=== PATIENT | male | born 1970 | race Two or more races ===

== ENCOUNTER 2021-07-06 08:03 | Emergency (ER) | payer SELFPAY ==
[~2021-07-06] VITALS: Ht 175.3 cm; Wt 95.4 kg
[2021-07-06] MEDS: IV NORMAL SALINE 1000ML BAG 1,000 ML IV ONE (08:49)
[2021-07-06] MEDS: ONDANSETRON PF 4 MG/2 ML VIAL. IVP ONE (08:50)
[2021-07-06] MEDS: KETOROLAC 15 MG/ML VIAL. IVP ONE (08:50)
--- NOTE | 2021-07-06 08:53 | ED.ADGEN ---
Past Medical History Past Medical History: Kidney Stone Past Surgical History: Cancer Surgery Smoking Status: Never Smoker Alcohol Use: Occasionally General Adult EDM: Chief Complaint: ABDOMINAL PAIN HPI: HPI: Patient is a 51 year old male coming in for about 24 hours of right-sided abdominal and flank pain. Patient states the pain is sharp sharp and was initially intermittent has become more constant. States it is little better with walking around, not changed with p.o. intake. Patient denies any hematuria or changes in urination. Patient states that he has had some nausea but no vomiting. Had one episode of diarrhea yesterday. Denies any heavy lifting or straining. Takes testosterone but denies any other medical or surgical history. Review of Systems: Review of Systems: All other systems within normal limits except for as noted in the HPI Current Medications: Current Medications Medications (Trade) Dose Ordered Sig/Kurtis Start Time Stop Time Status Last Admin Dose Admin Info (CONTRAST GIVEN -- Rx MONITORING) 1 each PRN DAILY PRN 07/06/21 09:15 07/08/21 09:14 Iohexol (Omnipaque 300 Mg/ml) 75 ml 1X ONCE 07/06/21 09:15 07/06/21 09:16 DC 07/06/21 09:40 75 ML Ketorolac Tromethamine (Toradol 15mg Vial) 15 mg 1X ONCE 07/06/21 09:00 07/06/21 09:01 DC 07/06/21 08:50 15 MG Ondansetron HCl (Zofran) 4 mg 1X ONCE 07/06/21 09:00 07/06/21 09:01 DC 07/06/21 08:50 4 MG Sodium Chloride 1,000 ml @ 1,000 mls/hr 1X ONCE 07/06/21 08:45 07/06/21 09:44 DC 07/06/21 08:49 1,000 MLS/HR Allergies: Allergies: Allergies Coded Allergies Type Severity Reaction Last Updated Verified No Known Drug Allergies 07/06/21 No Physical Exam: PE: Constitutional: Well developed, well nourished, no acute distress, non-toxic appearance. [] HENT: Normocephalic, atraumatic, bilateral external ears normal, nose normal. [] Eyes: PERRLA, conjunctiva normal, no discharge. [] Neck: No rigidity, supple, no stridor. [] Cardiovascular: Regular rate and rhythm, brisk cap refill [] Lungs & Thorax: Non labored symmetric respirations, no tachypnea or respiratory distress [] Abdomen: Soft, nondistended, negative Fult[place]'s, bite lower and mid abdominal tenderness to palpation. Skin: Warm, dry, no erythema, no rash. [] Back: Unremarkable, no point spine tenderness, right CVA tenderness Extremities: No deformities, range of motion grossly intact, no lower extremity edema [] Neurologic: Alert and oriented X 3, no focal deficits noted. [] Psychologic: Affect normal, judgement normal, mood normal. [] Current Patient Data: Labs: Laboratory Tests Test 07/06/21 08:48 07/06/21 09:35 White Blood Count 8.9 x10^3/uL (4.0-11.0) Red Blood Count 4.81 x10^6/uL (4.30-5.70) Hemoglobin 14.8 g/dL (13.0-17.5) Hematocrit 44.3 % (39.0-53.0) Mean Corpuscular Volume 92 fL (79-100) Mean Corpuscular Hemoglobin 31 pg (25-35) Mean Corpuscular Hemoglobin Concent 33 g/dL (31-37) Red Cell Distribution Width 12.9 % (11.5-14.5) Platelet Count 249 x10^3/uL (140-400) Neutrophils (%) (Auto) 78 % (31-73) H Lymphocytes (%) (Auto) 15 % (24-48) L Monocytes (%) (Auto) 6 % (0-9) Eosinophils (%) (Auto) 1 % (0-3) Basophils (%) (Auto) 1 % (0-3) Neutrophils # (Auto) 7.0 x10^3/uL (1.8-7.7) Lymphocytes # (Auto) 1.3 x10^3/uL (1.0-4.8) Monocytes # (Auto) 0.5 x10^3/uL (0.0-1.1) Eosinophils # (Auto) 0.1 x10^3/uL (0.0-0.7) Basophils # (Auto) 0.1 x10^3/uL (0.0-0.2) Sodium Level 142 mmol/L (136-145) Potassium Level 4.4 mmol/L (3.5-5.1) Chloride Level 102 mmol/L (98-107) Carbon Dioxide Level 29 mmol/L (21-32) Anion Gap 11 (6-14) Blood Urea Nitrogen 16 mg/dL (8-26) Creatinine 1.2 mg/dL (0.7-1.3) Estimated GFR (Cockcroft-Gault) 64.1 BUN/Creatinine Ratio 13 (6-20) Glucose Level 102 mg/dL (70-99) H Calcium Level 9.7 mg/dL (8.5-10.1) Total Bilirubin 0.5 mg/dL (0.2-1.0) Aspartate Amino Transferase (AST) 23 U/L (15-37) Alanine Aminotransferase (ALT) 47 U/L (16-63) Alkaline Phosphatase 67 U/L (46-116) Total Protein 7.4 g/dL (6.4-8.2) Albumin 4.0 g/dL (3.4-5.0) Albumin/Globulin Ratio 1.2 (1.0-1.7) Lipase 70 U/L (73-393) L Urine Collection Type Unknown Urine Color (Auto) Yellow Urine Turbidity Turbid Urine pH (Auto) 7.5 (<5.0-8.0) Urine Specific [place] 1.017 (1.000-1.030) Urine Protein (Auto) Negative mg/dL (Negative) Urine Glucose (Auto)(UA) Negative mg/dL (Negative) Urine Ketones (Auto) Negative mg/dL (Negative) Urine Blood (Auto) Moderate (Negative) Urine Nitrite Negative (Negative) Urine Bilirubin (Auto) Negative (Negative) Urine Urobilinogen (Auto) Normal mg/dL (Normal) Urine Leukocyte Esterase (Auto) Negative (Negative) Urine RBC 20-40 /HPF (0-2) Urine WBC Occ /HPF (0-4) Urine Squamous Epithelial Cells Occ /LPF Urine Amorphous Sediment Present /HPF Urine Bacteria Few /HPF (0-FEW) Laboratory Tests 07/06/21 08:48 Laboratory Tests 07/06/21 08:48 Vital Signs: Vital Signs Date Time Temp Pulse Resp B/P (MAP) Pulse Ox O2 Delivery O2 Flow Rate FiO2 07/06/21 08:16 97.9 96 20 139/95 (110) Room Air 97.9 EKG: EKG: [] Heart Score: C/O Chest Pain: No Risk Factors: Risk Factors: DM, Current or recent (<one month) smoker, HTN, HLP, family history of CAD, obesity. Risk Scores: Score 0 - 3: 2.5% MACE over next 6 weeks - Discharge Home Score 4 - 6: 20.3% MACE over next 6 weeks - Admit for Clinical Observation Score 7 - 10: 72.7% MACE over next 6 weeks - Early Invasive Strategies Radiology/Procedures: Radiology/Procedures: [facility] [address] [place] [address] IMAGING REPORT Signed PATIENT: TAMI LOPEZ ACCOUNT: [id number] : 1970 LOCATION: ER AGE: 51 SEX: M EXAM STATUS: REG ER ORD. PHYSICIAN: AMANDA ELLISON MD REASON: RLQ and flank pain PROCEDURE: CT ABD PELV W/ IV CONTRST ONLY INDICATION: Reason: RLQ and flank pain / Spl. Instructions: OMNI 300 INJ. 75 MLS / History: COMPARISON: None. TECHNIQUE: Axial CT images were obtained through the abdomen and pelvis with intravenous contrast. One or more of the following individualized dose reduction techniques were utilized for this examination: 1. Automated exposure control; 2. Adjustment of the mA and/or kV according to patient size; 3. Use of iterative reconstruction technique. FINDINGS: Vascular: Mild calcific atherosclerosis. Small fat-containing inguinal hernias. Hepatobiliary: Liver is low density which can be seen with fatty infiltration. Pancreas: No peripancreatic edema. Spleen: Spleen unremarkable. Renal/Bladder: Urinary bladder has minimal urine within it at time of exam. Mild right-sided hydronephrosis and proximal hydroureter with adjacent edema and 3 m m right proximal ureter stone. Gastrointestinal: No periappendiceal inflammatory changes. No dilated loops of bowel suggest obstruction. Mild loss of height of T11 and T10 vertebral body. There is also mild loss of height of L5. IMPRESSION: * Right-sided hydronephrosis with proximal ureter stone. Electronically signed by: Demetris Church MD (07/06/2021 10:09 AM) [employer]- [id number] DICTATED and SIGNED BY: DEMETRIS CHURCH MD DATE: 07/06/21 1000 [] Course & Med Decision Making: Course & Med Decision Making Pertinent Labs and Imaging studies reviewed. (See chart for details) [] Amanuel Disclaimer: Amanuel Disclaimer: This electronic medical record was generated, in whole or in part, using a voice recognition dictation system. Departure Departure Impression: Primary Impression: Kidney stone on right side Disposition: HOME / SELF CARE / HOMELESS Condition: STABLE Referrals: ISSAC GLOVER MD Patient Instructions: Diet for Kidney Stones, Kidney Stones Scripts Ondansetron (ONDANSETRON ODT) 4 Mg Tab.rapdis 1 TAB PO PRN Q6-8HRS PRN for NAUSEA, #8 TAB Prov: AMANDA ELLISON MD 07/06/21 Ibuprofen (IBUPROFEN) 800 Mg Tablet 800 MG PO PRN Q8HRS PRN for PAIN for 10 Days, #30 TAB Prov: AMANDA ELLISON MD 07/06/21 Hydrocodone Bit/Acetaminophen (HYDROCODONE-APAP 5-325 ) 1 Tab Tablet 1 TAB PO PRN Q6HRS PRN for PAIN for 5 Days, #15 TAB 0 Refills Prov: AMANDA ELLISON MD 07/06/21 Tamsulosin Hcl (FLOMAX) 0.4 Mg Cap.er.24h 1 CAP PO DAILY for kidney stone for 10 Days, #10 CAP 0 Refills Prov: AMANDA ELLISON MD 07/06/21 AMANDA ELLISON MD Jul 06, 2021 08:53
[2021-07-06 09:05] LABS: BASO # 0.1 x10^3/uL (0.0-0.2); BASO % 1 % (0-3); EOS # 0.1 x10^3/uL (0.0-0.7); EOS % 1 % (0-3); HEMATOCRIT 44.3 % (39.0-53.0); HEMOGLOBIN 14.8 g/dL (13.0-17.5); LYMPH # 1.3 x10^3/uL (1.0-4.8); LYMPH % 15 % (24-48); MEAN CORPUSCULAR HEMOGLOBIN 31 pg (25-35); MEAN CORPUSCULAR HGB CONC 33 g/dL (31-37); MEAN CORPUSCULAR VOLUME 92 fL (79-100); MONO # 0.5 x10^3/uL (0.0-1.1); MONO % 6 % (0-9); NEUT % 78 % (31-73); PLATELET COUNT 249 x10^3/uL (140-400); RED BLOOD COUNT 4.81 x10^6/uL (4.30-5.70); RED CELL DISTRIBUTION WIDTH 12.9 % (11.5-14.5); WHITE BLOOD COUNT 8.9 x10^3/uL (4.0-11.0)
[2021-07-06] MEDS ORDERED: CONTRAST GIVEN. MC PRN (09:15)
[2021-07-06 09:22] LABS: CALCIUM 9.7 mg/dL (8.5-10.1); CREATININE 1.2 mg/dL (0.7-1.3); GFR 64.1; POTASSIUM 4.4 mmol/L (3.5-5.1)
[2021-07-06 09:28] LABS: ALBUMIN/GLOBULIN RATIO 1.2 (1.0-1.7); TOTAL BILIRUBIN 0.5 mg/dL (0.2-1.0); TOTAL PROTEIN 7.4 g/dL (6.4-8.2)
[2021-07-06] MEDS: IOHEXOL 300 MG/ML 100ML VIAL. IV ONE (09:40)
[2021-07-06 10:11] LABS: BACTERIA,URINE FEW /HPF (0-FEW); RBC,URINE 20-40 /HPF (0-2); WBC,URINE OCC /HPF (0-4)
[2021-07-06 10:12] LABS: AMORPHOUS SEDIMENT,UR PRESENT /HPF
--- NOTE | 2021-07-06 10:12 | RAD ---
INDICATION: Reason: RLQ and flank pain / Spl. Instructions: OMNI 300 INJ. 75 MLS / History: COMPARISON: None. TECHNIQUE: Axial CT images were obtained through the abdomen and pelvis with intravenous contrast. One or more of the following individualized dose reduction techniques were utilized for this examinat ion: 1. Automated exposure control; 2. Adjustment of the mA and/or kV according to patient size; 3 . Use of iterative reconstruction technique. FINDINGS: Vascular: Mild calcific atherosclerosis. Small fat-containing inguinal hernias. Hepatobiliary: Liver is low density which can be seen with fatty infiltration. Pancreas: No peripancreatic edema. Spleen: Spleen unremarkable. Renal/Bladder: Urinary bladder has minimal urine within it at time of exam. Mild right-sided hydronep hrosis and proximal hydroureter with adjacent edema and 3 mm right proximal ureter stone. Gastrointestinal: No periappendiceal inflammatory changes. No dilated loops of bowel suggest obstruct ion. Mild loss of height of T11 and T10 vertebral body. There is also mild loss of height of L5. IMPRESSION: * Right-sided hydronephrosis with proximal ureter stone. Electronically signed by: Jeb Magallon MD (07/06/2021 10:09 AM) [id number]
[2021-07-06] MEDS ORDERED: ONDA4TAB12 PO (10:44)
[2021-07-06] MEDS ORDERED: HYDR-2761 PO (10:44)
[2021-07-06] MEDS ORDERED: IBUP-1060 PO (10:44)
[2021-07-06] MEDS ORDERED: TAMS0.4C97 PO (10:44)
[2021-07-06 10:55] VITALS: BP 130/88
[2021-07-06] MEDS: ACETAMINOPHEN 500 MG TABLET PO ONE (10:55)
== END 2021-07-06 11:04 | disposition home or self-care (01) ==
LOC: ER 08:03
DX: N13.2 Hydronephrosis with renal and ureteral calculous obstruction (principal)
CPT/HCPCS: 36415; 74177; 80053; 81001; 83690; 85025; 96361; 96374; 96375; 99285; J1885; J2405; J7030; Q9967